=== PATIENT | male | born 1940 | race Caucasian/White ===

== ENCOUNTER 2021-06-25 16:55 | Emergency (ER) | payer OTHER ==
[~2021-06-25] VITALS: Ht 182.9 cm; Wt 86.2 kg
--- NOTE | 2021-06-25 17:29 | NUR ---
PT IS IN ROOM #1B. DR DELGADO EVALUATED THE PT.
--- NOTE | 2021-06-25 18:53 | NUR ---
PT WAS D/C'd TO HOME. D/C INSTRUCTIONS GIVEN TO THE PT BY DR DELGADO.
[2021-06-25 18:55] VITALS: BP 134/75
== END 2021-06-25 19:00 | disposition home or self-care (01) ==
LOC: ER 16:57
DX: S00.81XA Abrasion of other part of head, initial encounter (principal); W01.0XXA Fall on same level from slipping, tripping and stumbling without subsequent striking against object, initial encounter; Y92.89 Other specified places as the place of occurrence of the external cause; E78.5 Hyperlipidemia, unspecified; R03.0 Elevated blood-pressure reading, without diagnosis of hypertension
CPT/HCPCS: 70450; 72125; A4663